=== PATIENT | male | born 1995 | race Caucasian/White ===

== ENCOUNTER 2016-09-06 11:50 | Emergency (ER) | payer BC, OTHER ==
[2016-09-06 12:05] VITALS: BP 142/98
[2016-09-06] MEDS ORDERED: Cephalexin 500 MG Cap PO ONE (12:27)
[2016-09-06] MEDS ORDERED: Acetaminophen/HYDROcodone 325-5 MG Tab PO ONE (12:27)
[2016-09-06] MEDS ORDERED: Diphtheria,Pertussis(Acell),Tetanus Vaccine 0.5 ML SDV inactive IM ONE (12:27)
--- NOTE | 2016-09-06 12:31 | EDM.PDOC ---
ED HPI BURN/SMOKE INHALATION - General Chief Complaint: Burn Stated Complaint: BURN L FOOT Time Seen by Provider: 09/06/16 12:17 Source of Information: Reports: Patient History Limitations: Reports: No limitations - History of Present Illness INITIAL COMMENTS - FREE TEXT/NARRATIVE: Patient is a 21-year-old male who presents ED complaining of almonte to the distal third and toes of left foot. Patient was wearing thick rubber boots with carbon toe while hot water pressure washing well head. Patient accidentally passed wand over his left toe causing steam almonte. Patient states he took 6x200 mg tablets of ibuprofen prior to arrival with minimal relief in discomfort. Currently the pain is 8/10. Tetanus status is unknown. Patient denies any past medical history and is currently taking no prescription medications. Timing/Duration: Reports: Constant, Waxing/waning Location, General: Reports: lower extremity, left Place of Occurrence: work Quality: Reports: Burning, Sharp, Stabbing, Throbbing Severity: severe Improves with: Reports: Medication Worsens with: Reports: Other (palpation) Context, Burn/Smoke Inhalation: Reports: hot liquid, steam Associated Symptoms: Reports: no other symptoms Treatments [employer]: Reports: NSAIDS - Related Data Allergies/ADRs: Allergies Allergy/AdvReac Type Severity Reaction Status Date / Time No Known Allergies Allergy Verified 09/06/16 12:01 Home Meds: Home Meds Acetaminophen/HYDROcodone [[place] 325-5 MG] 1 tab PO Q6H PRN #10 tablet 09/06/16 [Rx] Cephalexin [Keflex] 500 mg PO BID #14 capsule 09/06/16 [Rx] Past Medical History - Past Health History Medical/Surgical History: Denies Medical/Surgical History Social & Family History - Tobacco Use Smoking Status *Q: Current Every Day Smoker Years of Tobacco use: 5 Packs/Tins Daily: 1 - Recreational Drug Use Recreational Drug Use: No ED ROS GENERAL - Review of Systems Review Of Systems: See Below Musculoskeletal: Reports: foot pain Skin: Reports: erythema, burn(s) Neurological: Reports: Difficulty Walking (2nd to pain). Denies: Numbness, Tingling ED EXAM, BURN/SMOKE INHALATION - Physical Exam Exam: See Below Exam Limited By: No limitations General Appearance: alert, WD/WN, mild distress Ears (Abbreviated): hearing grossly normal Mouth/Throat: No symptoms reported Neck: supple Respiratory: no respiratory distress, lungs clear, normal breath sounds, no accessory muscle use Cardiovascular: normal peripheral pulses, regular rate, rhythm Peripheral Pulses: 2+: radial (R) Extremities: normal range of motion, no pedal edema, pain with movement (Flexion -extension of the toes the left foot.), other (Secondary burn to the distal 1/3/ toes of left foot. Blisters present. Pain with palpation. No findings concerning third-degree almonte.). No: unable to bear weight Neurological: alert, oriented, CN II-XII intact, normal cognition, no motor/ sensory deficits Psychiatric: normal affect, normal mood Skin Exam: Warm, Dry, Intact, Normal color, No rash Course - Vital Signs Last Recorded V/S: Last Vital Signs Temp 97.0 F 09/06/16 12:01 Pulse 79 09/06/16 12:01 Resp BP 142/98 H 09/06/16 12:01 Pulse Ox 98 09/06/16 12:01 - Orders/Labs/Meds Orders: Active Orders 24 hr Category Date Time Status Vaccines to be Administered [RC] PER UNIT ROUTINE Care 09/06/16 12:28 Active DME for Discharge [COMM] Stat Oth 09/06/16 13:13 Ordered Meds: Medications Discontinued Medications Generic Name Dose Route Start Last Admin Trade Name Jabierq PRN Reason Stop Dose Admin Hydrocodone Bitart/Acetaminophen 1 tab 09/06/16 12:27 09/06/16 12:37 [place] 325-5 Mg PO 09/06/16 12:28 1 tab ONETIME ONE Administration Cephalexin 500 mg 09/06/16 12:27 09/06/16 12:36 Keflex PO 09/06/16 12:28 500 mg ONETIME ONE Administration Diphtheria/Tetanus/Acell Pertussis 0.5 ml 09/06/16 12:27 09/06/16 12:36 Boostrix IM 09/06/16 12:28 0.5 ml .ONCE ONE Administration - Re-Assessments/Exams Free Text/Narrative Re-Assessment/Exam: Patient has 2nd degree almonte to the distal 1/3 of the left foot involving the toes with blisters present. Pain noted with palpation. No findings concerning for 3rd degree almonte. Tetanus status is unknown. Foot will be soaked for 10 to 15 minutes, pat dry, bacitracin placed to burn area, and wrapped in nonadherent dressing. Will update tetanus. Ordered norco 5-325mg PO and keflex 500mg PO. 09/06/16 12:28 09/06/16 13:34 Area is wrapped and pain is controlled. Will discharge patient home with instructions as documented. Departure - Departure Time of Disposition: 13:35 Disposition: Home, Self-Care 01 Condition: good Clinical Impression: Left foot burn Qualifiers: Encounter type: initial encounter Burn degree: second degree Qualified Code(s) : T25.222A - Burn of second degree of left foot, initial encounter Prescriptions: Acetaminophen/HYDROcodone [[place] 325-5 MG] 1 tab PO Q6H PRN #10 tablet PRN Reason: Pain (Severe 7-10) Cephalexin [Keflex] 500 mg PO BID #14 capsule Instructions: Burn Care, [id number], Pain Medicine Instructions, [id number] Referrals: PCP,None [Primary Care Provider] - Forms: ED Department Discharge Additional Instructions: As discussed leave bandage in place until tomorrow morning/noon when you're reevaluated in the ED. Take ibuprofen and tylenol in alternating fashion for pain. Elevate when able to reduce swelling and pain. For severe pain take norco 1 tab every 6 hours as needed. No driving today or while taking the norco. You will be unable to place your foot in a boot until blisters are healed. Please followup with Occupational Med Provider for modification of job duties. STOP SMOKING. - My Orders Last 24 Hours: My Active Orders 09/06/16 12:28 Vaccines to be Administered [RC] PER UNIT ROUTINE 09/06/16 13:13 DME for Discharge [COMM] Stat - Assessment/Plan Last 24 Hours: My Active Orders 09/06/16 12:28 Vaccines to be Administered [RC] PER UNIT ROUTINE 09/06/16 13:13 DME for Discharge [COMM] Stat
== END 2016-09-06 13:52 | disposition home or self-care (01) ==
LOC: JD.ED 11:50
DX: T25.222A Burn of second degree of left foot, initial encounter (principal); F17.210 Nicotine dependence, cigarettes, uncomplicated; Z23 Encounter for immunization; X11.8XXA Contact with other hot tap-water, initial encounter; Y99.0 Civilian activity done for income or pay
CPT/HCPCS: 90471; 99283; A9270; 90715

== ENCOUNTER 2016-09-07 11:57 | Emergency (ER) | payer OTHER ==
[2016-09-07 12:06] VITALS: BP 137/68
--- NOTE | 2016-09-07 12:09 | EDM.PDOC ---
ED HPI BURN/SMOKE INHALATION - General Chief Complaint: Wound Recheck Stated Complaint: WOUND RECHECK/BURN ON FOOT Time Seen by Provider: 09/07/16 12:05 Source of Information: Reports: Patient History Limitations: Reports: No limitations - History of Present Illness INITIAL COMMENTS - FREE TEXT/NARRATIVE: Patient is a 21 y/o male who presents to the E.D. for wound recheck. Patient sustained second degree almonte to the toes of left foot after passing a high pressurized wand with water heated to 250 F while cleaning a well head. He had been wearing cotton socks, thick neoprene boots, with carbon toe when this occurred. He presented to the E.D. with pain and mild blistering note to the toes. Area was cleansed with bacitracin placed and dressing. He notes pain has improved and blistering has worsened. Has been walking on it with minimal discomfort. Currently wearing slip on sandals. Denies any additional complaints. - Related Data Allergies/ADRs: Allergies Allergy/AdvReac Type Severity Reaction Status Date / Time No Known Allergies Allergy Verified 09/07/16 12:02 Home Meds: Home Meds Acetaminophen/HYDROcodone [[place] 325-5 MG] 1 tab PO Q6H PRN #10 tablet 09/06/16 [Rx] Cephalexin [Keflex] 500 mg PO BID #14 capsule 09/06/16 [Rx] Past Medical History - Past Health History Medical/Surgical History: Denies Medical/Surgical History Social & Family History - Tobacco Use Smoking Status *Q: Current Every Day Smoker Years of Tobacco use: 5 Packs/Tins Daily: 1 - Recreational Drug Use Recreational Drug Use: No ED ROS GENERAL - Review of Systems Review Of Systems: See Below Constitutional: Denies: fever, chills Musculoskeletal: Reports: foot pain (left) Skin: Reports: burn(s) (left foot). Denies: erythema, other (purulent drainage) Neurological: Denies: Numbness, Tingling, Difficulty Walking ED EXAM, BURN/SMOKE INHALATION - Physical Exam Exam: See Below Exam Limited By: No limitations General Appearance: alert, WD/WN, no apparent distress Ears (Abbreviated): hearing grossly normal Respiratory: no respiratory distress, no accessory muscle use Cardiovascular: normal peripheral pulses, regular rate, rhythm Extremities: other (Blisters noted to the dorsal aspect of 1st through 4th toe. Blisters are intact and have increased in size. Minimal pain on examination. Almonte have not extended from yesterday. No concerns for infection. ) Neurological: alert, oriented, CN II-XII intact, normal cognition, normal gait, no motor/sensory deficits Psychiatric: normal affect, normal mood Skin Exam: Warm, Dry Course - Vital Signs Last Recorded V/S: Last Vital Signs Temp 98.1 F 09/07/16 12:03 Pulse 79 09/07/16 12:03 Resp 16 09/07/16 12:03 BP 137/68 09/07/16 12:03 Pulse Ox 99 09/07/16 12:03 - Re-Assessments/Exams Free Text/Narrative Re-Assessment/Exam: 09/07/16 12:09 Almonte to the left toes has not extended. Blisters have increased and remain in tact. No signs of 3rd degree almonte or infection. Bacitracin and dressing placed per nursing staff will discharge home with instructions. Departure - Departure Time of Disposition: 12:15 Disposition: Home, Self-Care 01 Condition: good Clinical Impression: Left foot burn Qualifiers: Encounter type: initial encounter Burn degree: second degree Qualified Code(s) : T25.222A - Burn of second degree of left foot, initial encounter Instructions: Wound Infection, [id number], Pain Medicine Instructions, Easy- to-Read, How to Change Your Dressing, [id number] Referrals: PCP,None [Primary Care Provider] - Forms: ED Department Discharge, Return to Work/School Form Additional Instructions: As discussed see PCP or occupational med provider for further care of almonte to left foot. Cleanse site twice daily with soap and water, pat dry, reapply heavy coat of bacitracin ointment, and dressing. Keep area clean and dry. Once blisters pop, please followup with PCP or occupational med provider to have excess skin removed. Continue taking tylenol and ibuprofen in alternating fashion for pain (mild/moderate). Take norco as prescribed for severe pain. No driving while taking narcotic medication. See occupational med provider for modification of job duties. Return to the E.D. for any new or worsening symptoms.
== END 2016-09-07 12:26 | disposition home or self-care (01) ==
LOC: JD.ED 11:57
DX: T25.222D Burn of second degree of left foot, subsequent encounter (principal); X12.XXXD Contact with other hot fluids, subsequent encounter; F17.210 Nicotine dependence, cigarettes, uncomplicated
CPT/HCPCS: 99282; 99283

== ENCOUNTER 2022-08-07 13:29 | Emergency (ER) | payer BC, OTHER ==
[2022-08-07] MEDS ORDERED: Sodium Chloride 0.9% 10 ML Syringe FLUSH PRN (13:33)
[2022-08-07] MEDS ORDERED: HYDROmorphone 1 MG/ML Syringe IVPUSH STA ×2 (13:35→14:15)
[2022-08-07] MEDS ORDERED: Ondansetron 4 MG/2 ML SDV IVPUSH ONE (13:39)
[2022-08-07] MEDS ORDERED: Midazolam 1 MG/ML 5 ML SDV IVPUSH ONE (13:39)
[2022-08-07] MEDS ORDERED: Midazolam 1 MG/ML 2 ML SDV ONE ×2 (13:43→13:45)
[2022-08-07] MEDS ORDERED: HYDROmorphone 1 MG/ML Syringe ONE (14:16)
[2022-08-07 16:15] VITALS: BP 146/79; PULSE 88
== END 2022-08-07 16:18 | disposition home or self-care (01) ==
LOC: JD.ED 13:29
DX: S83.004A Unspecified dislocation of right patella, initial encounter (principal); Z72.0 Tobacco use; X50.1XXA Overexertion from prolonged static or awkward postures, initial encounter
CPT/HCPCS: 27560; 73562; 73610; 96374; 96375; 96376; 99283; J1170; J2250; J2405; J3490